=== PATIENT | male | born 1950 | race Hispanic/Latino ===

== ENCOUNTER 2018-08-09 10:25 | Outpatient (CLI) | payer MEDICARE, MEDICAID ==
--- NOTE | 2018-08-09 10:45 | RAD ---
2 views right knee: 08/09/2018 COMPARISON: None HISTORY: Knee pain FINDINGS: There is moderate/severe medial compartment narrowing with chondrocalcinosis and osteophyte formation of the medial femoral condyle. Mild lateral compartment narrowing with chondrocalcinosis. Moderate patellofemoral joint space narrowing with posterior patellar osteophyte formation. No signif icant knee joint effusion. No acute fracture or dislocation. IMPRESSION: Multicompartment degenerative joint disease.
--- NOTE | 2018-08-09 10:46 | RAD ---
2 views of the left knee: 08/09/2018 COMPARISON: None HISTORY: Pain FINDINGS: Moderate medial compartment and mild lateral compartment joint space narrowing. Medial and lateral compartment chondrocalcinosis. No knee joint effusion. Moderate patellofemoral joint space na rrowing with posterior patellar osteophyte formation. No acute fracture or dislocation. IMPRESSION: Degenerative joint disease.
== END 2018-08-09 10:26 | disposition home or self-care (01) ==
LOC: NAV RAD 10:25
PROVIDERS: ATTEND Nurse Practitioner Family
DX: M25.561 Pain in right knee (principal); M25.562 Pain in left knee; M17.0 Bilateral primary osteoarthritis of knee

== ENCOUNTER 2021-08-26 11:02 | Outpatient (CLI) | payer MEDICARE, MEDICAID | END 2021-08-26 11:03 | disposition home or self-care (01) | LOC: NAV RAD 11:02 | PROVIDERS: ATTEND Family Medicine | DX: M25.552 Pain in left hip (principal); M16.12 Unilateral primary osteoarthritis, left hip ==

== ENCOUNTER 2022-01-22 14:47 | Emergency (ER) | payer OTHER, MEDICAID ==
[2022-01-22] MEDS ORDERED: Sodium Chloride 0.9% 1,000 ML ONE (15:24)
[2022-01-22 15:30] LABS: #Basophils 0.1 thou/uL (0.0-0.2); #Monocytes 0.5 thou/uL (0.11-0.59); #Neutrophils 6.3 thou/uL (1.40-6.50); %Basophils 0.9 % (0.0-1.0); %Eosinophils 0.5 % (0.0-10.0); %Lymphocytes 12.7 % (21.0-51.0); %Neutrophils 79.9 % (42.0-75.0); Mean Corpuscular HGB CONC 32.4 g/dL (32.0-36.0); Mean Corpuscular Hemoglobin 31.5 pg (27.0-31.0); Mean Corpuscular Volume 97.2 fL (78.0-98.0); Mean Platelet Volume 11.5 fL (7.4-10.4); Platelet Count 193 thou/uL (130-400); RBC Distribution Width 12.6 % (11.5-14.5); Red Blood Cell (RBC) Count 4.13 mill/uL (4.70-6.10); White Blood Cell (WBC) Count 7.9 thou/uL (4.8-10.8)
[2022-01-22 15:30] LABS: Bilirubin Negative (Negative); Blood, Urine Trace (Negative); Clarity Clear (Clear); Glucose, Urine (Dipstick) >=1000 mg/dL (Negative); Ketone, Urine Trace mg/dL (Negative); Leukocyte Negative (Negative); Nitrite Negative (Negative); Protein, Urine (Dipstick) Negative (Neg-Trace); Urobilinogen 0.2 mg/dL (Less than 2); pH, Urine 5.5 (5.0-9.0)
[2022-01-22 15:31] LABS: Specific Gravity, Urine 1.028 (1.002-1.036)
[2022-01-22 15:41] LABS: ALT (SGPT) 23 U/L (8-55); AST (SGOT) 16 U/L (5-34); Albumin 3.9 g/dL (3.4-4.8); Alkaline Phosphatase 131 U/L (40-110); Anion Gap 19 mmol/L (10-20); BUN (Urea Nitrogen) 27 mg/dL (8.4-25.7); Bilirubin, Total 0.5 mg/dL (0.2-1.2); Calc. Creatinine Clearance 0 mL/min (70-130); Calcium 9.1 mg/dL (7.8-10.44); Carbon Dioxide 22 mmol/L (23-31); Chloride 92 mmol/L (98-107); Estimated GFR 47; Globulin 2.8 g/dL (2.4-3.5); Potassium 4.1 mmol/L (3.5-5.1); Protein, Total 6.7 g/dL (5.8-8.1); Sodium 129 mmol/L (136-145)
[2022-01-22 15:59] LABS: RBC/HPF 0-3 HPF (0-3); WBC/HPF 0-3 HPF (0-3)
[2022-01-22] MEDS ORDERED: INSULIN REGULAR IN 0.9 % NACL 100 UNIT/100 ML BAG ONE (16:03)
[2022-01-22 16:07] LABS: Glucose 932 mg/dL (80-115)
[2022-01-22 16:11] LABS: Magnesium 1.9 mg/dL (1.6-2.6); Phosphorus 3.4 mg/dL (2.3-4.7)
[2022-01-22 16:19] LABS: Base Excess-Venous -1.1 mmol/L (-2.0 to 3.0); Bicarbonate (HCO3v) 23.8 mmol/L (22.0-28.0); Calcium, Ionized 1.06 mmol/L (1.15-1.33); Chloride 91 mmol/L (98-107); Hemoglobin - Calc 13.7 g/dL (14.0-18.0); Potassium 5.6 mmol/L (3.5-5.1); Sodium 123 mmol/L (138-145); T. Carbon Dioxide 25.1 mmol/L (22.0-28.0); vO2 Saturation-calc 83.3 % (60.0-85.0)
[2022-01-22 17:02] LABS: SARS-CoV-2 NAA Rapid Test Not Detected (NotDetected)
[2022-01-22 17:42] LABS: Glucose POC Confirmation 555 mg/dl (80-115)
== END 2022-01-22 18:05 | disposition short-term general hospital (02) ==
LOC: NAV ERS 14:47
DX: E11.00 Type 2 diabetes mellitus with hyperosmolarity without nonketotic hyperglycemic-hyperosmolar coma (NKHHC) (principal); E78.5 Hyperlipidemia, unspecified; E78.00 Pure hypercholesterolemia, unspecified; I10 Essential (primary) hypertension; Z20.822 Contact with and (suspected) exposure to COVID-19
CPT/HCPCS: 80053; 82330; 82435; 82803; 82947; 82962; 83605; 83735; 84100; 84132; 84295; 84484; 85014; 85025; 93005; 94760; 96365; 96366; 96376; 99285; U0002; 36416; 81003; 81015; J1815; J7050

== ENCOUNTER 2022-07-23 11:26 | Emergency (ER) | payer OTHER, MEDICAID | END 2022-07-23 12:00 | disposition home or self-care (01) | LOC: NAV ERS 11:26 | DX: E11.9 Type 2 diabetes mellitus without complications (principal); I10 Essential (primary) hypertension; E78.00 Pure hypercholesterolemia, unspecified; Z76.0 Encounter for issue of repeat prescription; Z79.4 Long term (current) use of insulin | CPT/HCPCS: 99281 ==

== ENCOUNTER 2023-10-23 11:27 | Emergency (ER) | payer OTHER, MEDICAID ==
[2023-10-23] MEDS ORDERED: Lidocaine 1% (PF) 30 ML VIAL ONE (12:13)
[2023-10-23] MEDS ORDERED: Dexamethasone 4 mg/ml Vial ONE (12:15)
[2023-10-23] MEDS ORDERED: Acetaminophen 325 MG TAB ONE (12:50)
[2023-10-23 21:59] LABS: RBC Count-Automated (BF) 5 /cu.mm; WBC/Nucleated-Auto (BF) 1336 /cu.mm
[2023-10-23 22:05] LABS: Body Fluid Source Synovial Fluid; Clarity Hazy (Clear); Tube # EDTA
[2023-10-23 22:06] LABS: BF Color Yellow
[2023-10-23 22:30] LABS: BF Segmented Neutrophils 86 %; Cell Count Non Hematic 8 %; Lymphocytes 6 %
== END 2023-10-23 13:07 | disposition home or self-care (01) ==
LOC: NAV ERS 11:27
DX: M25.462 Effusion, left knee (principal); M25.562 Pain in left knee; E11.9 Type 2 diabetes mellitus without complications; I10 Essential (primary) hypertension; E78.00 Pure hypercholesterolemia, unspecified; Z79.4 Long term (current) use of insulin; Z79.84 Long term (current) use of oral hypoglycemic drugs; Z79.899 Other long term (current) drug therapy
CPT/HCPCS: 20610; 85060; 87070; 87205; 89051; 89060; J1100; J2001

== ENCOUNTER 2023-12-02 12:22 | Emergency (ER) | payer OTHER, MEDICAID ==
[2023-12-02] MEDS ORDERED: Acetaminophen 325 MG TAB ONE (13:28)
== END 2023-12-02 14:29 | disposition home or self-care (01) ==
LOC: NAV ERS 12:22
DX: S16.1XXA Strain of muscle, fascia and tendon at neck level, initial encounter (principal); S39.012A Strain of muscle, fascia and tendon of lower back, initial encounter; R51.9 Headache, unspecified; E11.9 Type 2 diabetes mellitus without complications; I10 Essential (primary) hypertension; E78.00 Pure hypercholesterolemia, unspecified; Z79.84 Long term (current) use of oral hypoglycemic drugs; Z79.899 Other long term (current) drug therapy; Z79.4 Long term (current) use of insulin; V89.2XXA Person injured in unspecified motor-vehicle accident, traffic, initial encounter
CPT/HCPCS: 70450; 72125; 72131